=== PATIENT | female | born 1970 | race Caucasian/White ===

== ENCOUNTER 2018-03-20 20:28 | Emergency (ER) | payer OTHER ==
[2018-03-20] MEDS ORDERED: Acetaminophen TAB* 325 MG PO ONE (20:54)
[2018-03-20] MEDS ORDERED: NS 0.9% 1000 ML* 2,000 ML IV ONE (20:54)
--- NOTE | 2018-03-20 21:05 | ED ---
Palpitations / Dysrhythmia - HPI Summary HPI Summary: A 47 y/o male accompanied by family presents to the ED c/o palpitations. In the ED room, the patient has a pulse of 124 BPM, O2 saturation of 98%, and blood pressure of 116/82. As per triage, "Pt c/o high heart rate since last night. Pt denies cardiac issues. States she could not sleep d/t palpitations". According to the patient, she has been experiencing palpitations for the past 24 hours, as far as she knows. She denies any cough (or flem), chest pain, or abdominal pain, however, she did note that she did have some epigastric abdominal pain around 1100 today, but she ended up vomiting and made her feel better. Additionally, the patient has a fever and is diaphoretic. Patient has no other known medical problems at this time. Patient did not take any Motrin or Tylenol. SHx of no ETOH or smoking. - History of Current Complaint Chief Complaint: EDDysrhythmPalp Time Seen by Provider: 03/20/18 20:46 Hx Obtained From: Patient Onset/Duration: Sudden Onset, Lasting Hours, Still Present Timing: Constant Severity Currently: None Character: Irregular Aggravating: Nothing Alleviating: Nothing - Allergy/Home Medications Allergies/Adverse Reactions: Allergies Allergy/AdvReac Type Severity Reaction Status Date / Time No Known Allergies Allergy Verified 03/20/18 20:32 PMH/Surg Hx/FS Hx/Imm Hx Endocrine/Hematology History: Denies: Hx Diabetes, Hx Thyroid Disease Cardiovascular History: Denies: Hx Coronary Artery Disease Musculoskeletal History: Denies: Hx Arthritis, Hx Osteoporosis - Surgical History Surgery Procedure, Year, and Place: , BREAST AND FOOT SURGERY - Immunization History Date of Tetanus Vaccine: 2009 Date of Influenza Vaccine: fall 2017 Infectious Disease History: No Infectious Disease History: Denies: Traveled Outside the [place] in Last 30 Days - Family History Known Family History: Positive: Other - Hx of CVA in mother - Social History Alcohol Use: None Substance Use Type: Reports: None Smoking Status (MU): Never Smoked Tobacco Review of Systems Positive: Fever, Skin Diaphoresis Positive: Palpitations. Negative: Chest Pain Negative: Cough Positive: Abdominal Pain - EPIGASTRIC - RESOLVED All Other Systems Reviewed And Are Negative: Yes Physical Exam - Summary Physical Exam Summary: Appearance: Well appearing, no pain distress, patient is diaphoretic Skin: warm, dry, reflects adequate perfusion Head/face: normal Eyes: EOMI, DENIS ENT: normal Neck: supple, non-tender Respiratory: CTA, breath sounds present Cardiovascular: tachycardia Abdomen: non-tender, soft Musculoskeletal: normal, strength/ROM intact Neuro: normal, sensory motor intact, A&Ox3 Triage Information Reviewed: Yes Vital Signs On Initial Exam: Initial Vitals Temp Pulse Resp BP Pulse Ox 100.9 F 143 16 139/85 97 03/20/18 20:29 03/20/18 20:29 03/20/18 20:29 03/20/18 20:29 03/20/18 20:29 Vital Signs Reviewed: Yes Diagnostics - Vital Signs Vital Signs Temp Pulse Resp BP Pulse Ox 03/20/18 20:29 100.9 F 143 16 139/85 97 - Laboratory Result Diagrams: 03/20/18 21:17 03/20/18 21:17 Lab Statement: Any lab studies that have been ordered have been reviewed, and results considered in the medical decision making process. - Radiology CXR Radiology Interpretation Completed By: ED Physician - NEGATIVE. PENDING OFFICIAL REPORT. - EKG 2031 Cardiac Rate: Tachycardia - 127 BPM EKG Rhythm: Sinus Tachycardia - 127 BPM Course/Dx - Course Course Of Treatment: A 47 y/o male accompanied by family presents to the ED c/o palpitations. In the ED room, the patient has a pulse of 124 BPM, O2 saturation of 98%, and blood pressure of 116/82. According to the patient, she has been experiencing palpitations for the past 24 hours, as far as she knows. She denies any cough (or flem), chest pain, or abdominal pain. Additionally, the patient has a fever and is diaphoretic. Patient has no other known medical problems at this time. Physical examination findings significant for tachycardia , patient is diaphoretic. A CXR revealed to be negative. An EKG revealed sinus tachycardia at 127 BPM. Hematology, Chemistry, and urinalysis screens were done. No significant laboratory abnormalities were found. In the ED course, the patient received Tylenol and IV fluids. Patient will be discharged with a diagnosis of fever, palpitations, and viral syndrome. Patient is advised to take Tylenol. Patient is to follow up with primary care provider in 2-3 days. Patient is to return to ED for any new or worsening symptoms. Patient agreeable with this plan. - Diagnoses Differential Diagnosis/HQI/PQRI: Positive: Other - fever Provider Diagnoses: Fever, Viral syndrome, Palpitations Discharge - Sign-Out/Discharge Documenting (check all that apply): Patient Departure - DISCHARGE - Discharge Plan Condition: Stable Disposition: HOME Patient Education Materials: Heart Palpitations (ED), Fever in Adults (ED), Viral Syndrome (ED) Referrals: Marianela Carney MD [Primary Care Provider] - 3 Days Additional Instructions: ADVISED TO TAKE TYLENOL NEEDED. FOLLOW UP WITH PRIMARY CARE PROVIDER IN 2-3 DAYS. RETURN TO ED FOR ANY NEW OR WORSENING SYMPTOMS. - Billing Disposition and Condition Condition: STABLE Disposition: Home - Attestation Statements Document Initiated by Eligio: Yes Documenting Scribe: Nick Yost Provider For Whom Eligio is Documenting (Include Credential): Paresh Dickerson MD Scribe Attestation: Nick Knight scribed for Paresh Dickerson MD on 03/20/18 at 2349. Scribe Documentation Reviewed: Yes Provider Attestation: The documentation as recorded by the Nick negro accurately reflects the service I personally performed and the decisions made by Paresh trotter MD Status of Scribe Document: Viewed
[2018-03-20 21:24] LABS: ABS Basophils 0 10^3/ul (0-0.2); ABS Eosinophils 0 10^3/ul (0-0.6); ABS Lymphocytes 0.4 10^3/ul (1.0-4.8); ABS Monocytes 0.3 10^3/ul (0-0.8); ABS Neutrophils 6.8 10^3/ul (1.5-7.7); ABS Nucleated RBC 0 10^3/ul; Eosinophil % 0.1 %; Hematocrit 38 % (35-47); Hemoglobin 12.3 g/dl (12.0-16.0); Lymphocyte % 5.4 %; Mean Corpuscular HGB Conc 32 g/dl (31-36); Mean Corpuscular Hemoglobin 26 pg (27-31); Mean Corpuscular Volume 80 fL (80-97); Mean Platelet Volume 9.1 fL (7.4-10.4); Nucleated Red Blood Cells % 0; Platelet Count 274 10^3/ul (150-450); Red Blood Count 4.74 10^6/ul (4.00-5.40); Red Cell Distribution Width 17 % (10.5-15); White Blood Count 7.6 10^3/ul (3.5-10.8)
[2018-03-20 21:33] LABS: Activated Partial Thrombo Time 31.1 seconds (26.0-36.3); INR 1.02 (0.77-1.02)
[2018-03-20 21:42] LABS: ALT 12 U/L (7-52); AST 17 U/L (13-39); Albumin 4.4 g/dL (3.2-5.2); Albumin/Globulin Ratio 1.5 (1-3); Alkaline Phosphatase 65 U/L (34-104); Anion Gap 10 mmol/L (2-11); BUN/Creatinine Ratio 16.5 (8-20); Blood Urea Nitrogen 15 mg/dL (6-24); CO2 Carbon Dioxide 24 mmol/L (22-32); Calcium 9.3 mg/dL (8.6-10.3); Chloride 101 mmol/L (101-111); EGFR Non-African American 66.3 (>60); Globulin 2.9 g/dL (2-4); Glucose 104 mg/dL (70-100); Potassium 3.7 mmol/L (3.5-5.0); Sodium 135 mmol/L (135-145); Total Protein 7.3 g/dL (6.4-8.9)
[2018-03-20 21:49] LABS: HCG Pregnancy < 0.60 mIU/mL
[2018-03-20 22:23] LABS: TSH (Thyroid Stimulating Horm) 1.21 mcIU/mL (0.34-5.60)
[2018-03-20 22:52] LABS: Urine Appearance Cloudy; Urine Bilirubin Negative (Negative); Urine Blood Negative (Negative); Urine Color Yellow; Urine Glucose Negative (Negative); Urine Ketones 1+ (Negative); Urine Nitrite Negative (Negative); Urine Protein Negative (Negative); Urine Specific Gravity 1.009 (1.010-1.030); Urine Urobilinogen Negative (Negative)
[2018-03-21 00:12] VITALS: BP 114/57
== END 2018-03-20 23:52 | disposition home or self-care (01) ==
LOC: ED 20:28
DX: R50.9 Fever, unspecified (principal); B34.9 Viral infection, unspecified; R00.2 Palpitations; R10.9 Unspecified abdominal pain
CPT/HCPCS: 36415; 71046; 80053; 81003; 83690; 84443; 84484; 84702; 85025; 85610; 85730; 87040; 93005; 96360; 99283; A9270-GY